=== PATIENT | male | born 1995 | race Caucasian/White ===

== ENCOUNTER 2016-10-10 18:17 | Emergency (ER) | payer OTHER ==
[~2016-10-10] VITALS: Ht 170.2 cm; Wt 94.8 kg
[2016-10-10 18:18] VITALS: BP 133/84
[2016-10-10] MEDS ORDERED: ALBU83IN INH (18:25)
== END 2016-10-10 19:26 | disposition home or self-care (01) ==
LOC: M ED 18:43
DX: J02.9 Acute pharyngitis, unspecified (principal); J45.909 Unspecified asthma, uncomplicated